=== PATIENT | male | born 1995 | race African-American/Black ===

== ENCOUNTER 2016-09-03 13:03 | Emergency (ER) | payer MEDICAID ==
[~2016-09-03] VITALS: Ht 177.8 cm; Wt 109.0 kg
[2016-09-03] MEDS ORDERED: IBUPROFEN 600MG TABLET PO ONE (15:00)
[2016-09-03 15:02] VITALS: BP 154/98
== END 2016-09-03 16:38 | disposition home or self-care (01) ==
LOC: ER 15:21
DX: S63.502A Unspecified sprain of left wrist, initial encounter (principal); F12.10 Cannabis abuse, uncomplicated; V43.52XA Car driver injured in collision with other type car in traffic accident, initial encounter; Y93.89 Activity, other specified; Y92.488 Other paved roadways as the place of occurrence of the external cause; Y99.8 Other external cause status
CPT/HCPCS: 73110; 99284

== ENCOUNTER 2018-03-06 21:10 | Inpatient (IN) | payer MEDICAID ==
[~2018-03-06] VITALS: Ht 177.8 cm; Wt 133.8 kg
[2018-03-07] MEDS ORDERED: IBUPROFEN 600MG TABLET PO ONE (00:45)
[2018-03-07] MEDS ORDERED: ASPIRIN 81MG TABLET PO ONE (01:00)
[2018-03-07] MEDS ORDERED: NITROGLYCERIN 0.4MG TABLET SL SL PRN (01:00)
[2018-03-07 01:47] LABS: BASOPHILS % 0.9 % (0.0-2.0); EOSINOPHILS % 0.8 % (0.0-5.0); HEMATOCRIT. 48.4 % (42.0-52.0); HEMOGLOBIN. 16.4 g/dL (14.0-18.0); LYMPHOCYTES % 16.2 % (20.0-50.0); MEAN CORPUSCULAR HEMOGLOBIN 30.1 pg (28.0-32.0); MEAN CORPUSCULAR VOLUME 88.7 fL (80.0-94.0); MEAN PLATELET VOLUME 7.4 fl (7.4-10.4); NEUTROPHILS % 71.1 % (40.0-76.0); PLATELET 318 x1000/uL (130-400); RED BLOOD CELL COUNT 5.45 mill/uL (4.7-6.1); RED CELL DISTRIBUTION WIDTH 14.6 % (11.6-14.6)
[2018-03-07 01:50] LABS: CHLORIDE 101 mEq/L (98-107)
[2018-03-07 01:54] LABS: D-DIMER < 0.19 mg/L FEU (<0.50); PARTIAL THROMBOPLASTIN TIME 28.8 sec (23.4-31.0); PROTHROMBIN TIME 10.3 sec (9.1-11.1)
[2018-03-07] MEDS ORDERED: POTASSIUM CHLORIDE 20MEQ TABLET SR PO ONE (03:00)
[2018-03-07] MEDS ORDERED: MAGNESIUM/ALUMINUM HYDROXIDE/SIMETHICONE 30ML UDC PO PRN (07:15)
[2018-03-07] MEDS ORDERED: CLONIDINE 0.1MG TABLET PO PRN (07:15)
[2018-03-07] MEDS ORDERED: ACETAMINOPHEN 325MG TABLET PO PRN (07:15)
[2018-03-07] MEDS ORDERED: HYDROCODONE/ACETAMINOPHEN 5/325MG TABLET PO PRN (07:15)
[2018-03-07] MEDS ORDERED: DOCUSATE SODIUM 100MG CAPSULE PO PRN (07:15)
[2018-03-07] MEDS ORDERED: GUAIFENESIN 200MG/10ML SUGAR FREE UDC PO PRN (07:15)
[2018-03-07] MEDS ORDERED: ONDANSETRON HCL 4MG/2ML INJ IV PRN (07:15)
[2018-03-07] MEDS ORDERED: KCL 10MEQ/50ML PREMIX 50 ML IV ONE (11:30)
[2018-03-07] MEDS ORDERED: IOHEXOL-350 100 ML BOTTLE ONE (11:47)
[2018-03-07] MEDS ORDERED: KCL 10MEQ/50ML PREMIX 50 ML IV NR (13:15)
[2018-03-07 15:55] LABS: CREATINE KINASE 381 IU/L (39-308)
[2018-03-07 15:56] LABS: CREATINE KINASE MB FRACTION 1.4 ng/mL (0.5-3.6)
[2018-03-07 15:59] LABS: T4 FREE 0.87 ng/dL (0.76-1.46)
[2018-03-07 16:00] VITALS: BP 129/78
[2018-03-07 16:23] VITALS: BP 139/79
[2018-03-07] MEDS ORDERED: INFLUENZA VIRUS VACCINE(AFLURIA) 0.5ML SYR IM ONE (16:45)
[2018-03-07 20:00] VITALS: BP 125/77
[2018-03-07 20:22] LABS: *AMPHETAMINES SCREEN URINE NEGATIVE (NEGATIVE); *BARBITURATES SCREEN URINE NEGATIVE (NEGATIVE); *BENZODIAZEPINES SCREEN URINE NEGATIVE (NEGATIVE); *COCAINE SCREEN URINE NEGATIVE (NEGATIVE); METHADONE URINE SCREEN NEGATIVE (NEGATIVE); OPIATES URINE SCREEN NEGATIVE (NEGATIVE)
[2018-03-07 20:23] LABS: CANNABINOID URINE SCREEN PRESUMTIVE POSITIVE (NEGATIVE); PHENCYCLIDINE URINE SCREEN NEGATIVE (NEGATIVE)
[2018-03-07] MEDS: ENOXAPARIN 40MG/0.4ML SYR SUBCUT SCH (22:52)
[2018-03-08] VITALS: BP 114/66
[2018-03-08 00:40] LABS: CREATINE KINASE 347 IU/L (39-308)
[2018-03-08 00:41] LABS: CREATINE KINASE MB FRACTION 1.7 ng/mL (0.5-3.6)
[2018-03-08 04:00] VITALS: BP 110/70
[2018-03-08 07:03] LABS: BASOPHILS % 0.5 % (0.0-2.0); EOSINOPHILS % 2.2 % (0.0-5.0); HEMATOCRIT. 48.4 % (42.0-52.0); HEMOGLOBIN. 16.1 g/dL (14.0-18.0); LYMPHOCYTES % 22.4 % (20.0-50.0); MEAN CORPUSCULAR VOLUME 90.3 fL (80.0-94.0); MEAN PLATELET VOLUME 7.4 fl (7.4-10.4); MONOCYTES % 13.9 % (2.0-8.0); PLATELET 305 x1000/uL (130-400); RED BLOOD CELL COUNT 5.36 mill/uL (4.7-6.1); RED CELL DISTRIBUTION WIDTH 14.7 % (11.6-14.6)
[2018-03-08 07:35] LABS: CHLORIDE 105 mEq/L (98-107)
[2018-03-08 07:45] LABS: LDL CHOLESTEROL 80 mg/dL (5-100)
[2018-03-08 07:47] LABS: HDL CHOLESTEROL 58 mg/dL (40-59)
[2018-03-08 08:33] VITALS: BP 129/52
[2018-03-08] MEDS: ENOXAPARIN 40MG/0.4ML SYR SUBCUT SCH (09:03)
[2018-03-08] MEDS: ASPIRIN 81MG EC TABLET PO SCH (09:03)
[2018-03-08 12:15] VITALS: BP 135/90
[2018-03-08 13:08] VITALS: BP 135/90
== END 2018-03-08 14:01 | disposition home or self-care (01) | DRG 199 ==
LOC: ER 21:10 → 6WST 03-07 03:31 → SUPCPDRO 03-07 07:07 → ENRESERV 03-07 12:46
PROVIDERS: ADMIT Hospitalist; ATTEND Hospitalist
DX: I16.0 Hypertensive urgency (principal); R65.10 Systemic inflammatory response syndrome (SIRS) of non-infectious origin without acute organ dysfunction; M94.0 Chondrocostal junction syndrome [Tietze]; F10.10 Alcohol abuse, uncomplicated; F12.90 Cannabis use, unspecified, uncomplicated; I10 Essential (primary) hypertension; Z88.8 Allergy status to other drugs, medicaments and biological substances
CPT/HCPCS: 36415; 71045; 71275; 80061; 80305; 82550; 82553; 83036; 83880; 84439; 84443; 84484; 85379; 93005; 93306; 93970; 99285; J1650; J3480; Q9967